=== PATIENT | female | born 1970 | race Caucasian/White ===

== ENCOUNTER 2017-03-28 23:54 | Emergency (ER) | payer BC ==
[2017-03-29] MEDS ORDERED: Nitrostat 0.4 MG (ED) SL ONE ×2 (00:03→00:15)
[2017-03-29] MEDS ORDERED: BABY ASPIRIN 81 MG CHEW PO ONE (00:03)
[2017-03-29] MEDS ORDERED: Sodium Chloride 0.9% 1000 ML 1,000 ML ONE (00:15)
[2017-03-29] MEDS ORDERED: Sodium Chloride 0.9% 1000 ML 1,000 ML IV SCH (00:15)
[2017-03-29] MEDS ORDERED: BABY ASPIRIN 81 MG CHEW ONE (00:15)
[2017-03-29 00:20] LABS: Lactic Acid 2.4 (0.4-2.0)
[2017-03-29 00:21] LABS: Basophil (Absolute #) 0 (0-0.4); Eosinophil % 0.1 % (0.00-5.0); Eosinophil (Absolute #) 0.02 (0-0.5); Granulocyte Absolute (ANC) 12.96 (1.4-6.9); Granulocytes % 83.7 % (36.0-66.0); Hematocrit 37.2 % (35-47); Hemoglobin 12.8 gm/dl (12.0-16.0); Lymphocyte (Absolute #) 1.37 (1.0-4.6); Lymphocytes % 8.8 % (24.0-44.0); Mean Cell Volume 96.4 fl (78-100); Mean Corpuscular Hgb Concent. 34.4 g/dl (32-36); Mean Platelet Volume 10.4 fl (6-9.5); Monocyte (Absolute #) 1.14 (0.0-1.3); Monocytes % 7.4 % (0.0-12.0); Platelet Count 187 K/mm3 (150-450); Red Blood Count 3.86 M/mm3 (4.1-5.4); Red Cell Distribution Width 12.3 % (11.5-14.0); White Blood Count 15.5 K/mm3 (4.0-10.5)
--- NOTE | 2017-03-29 00:33 | ERPHSYRPT ---
- History of Present Illness Time Seen by Provider: 03/29/17 00:01 Historian: patient, family Exam Limitations: no limitations Patient Subjective Stated Complaint: pt states she began having back and shoulder pain yesterday am today pain is in back, chest and shoulder Triage Nursing Assessment: pt alert and oriented, answers questions approp, pt transfer from wheelchair to stretcher with heavy assist of 2. pt with generalized weakness noted. pt short of breath with lungs cta. skin hot and dry. Physician History: pt is 46 year old female with CP today and cough - smoker - no prior hx CAD or lung problems- chest is clear- some response with nitro hx back pain Timing/Duration: today Activities at Onset: none Quality: sharpness, tightness Location: central Chest Pain Radiation: back Severity of Pain-Max: moderate Severity of Pain-Current: moderate Associated Symptoms: cough Prior Chest Pain/Cardiac Workup: no prior chest pain Nitro Today/Relief: 0.4 mg x 1, provided by ED, mild relief Aspirin Treatment Today: 81 mg x 4, provided by ED Allergies/Adverse Reactions: No Known Drug Allergies Allergy (Verified 03/29/17 00:18) Hx Tetanus, Diphtheria Vaccination/Date Given: No Hx Influenza Vaccination/Date Given: No Hx Pneumococcal Vaccination/Date Given: No Immunizations Up to Date: No - Review of Systems Constitutional: No Fever, No Chills Eyes: No Symptoms Ears, Nose, & Throat: No Symptoms Respiratory: Cough, No Dyspnea Cardiac: Chest Pain, No Edema, No Syncope Abdominal/Gastrointestinal: No Abdominal Pain, No Nausea, No Vomiting, No Diarrhea Genitourinary Symptoms: No Dysuria Musculoskeletal: Back Pain, No Neck Pain Skin: No Rash Neurological: No Dizziness, No Focal Weakness, No Sensory Changes Psychological: No Symptoms Endocrine: No Symptoms All Other Systems: Reviewed and Negative - Past Medical History Pertinent Past Medical History: No - Past Surgical History Past Surgical History: No Female Surgical History: Section Other Surgical History: c section x3, rt lumpectomy - Social History Smoking Status: Current every day smoker How long have you smoked: years Exposure to second hand smoke: Yes Drug Use: none Patient Lives Alone: No - Female History Hx Last Menstrual Period: current Hx Now: No - Nursing Vital Signs Nursing Vital Signs: Initial Vital Signs Temperature 100.2 F 03/29/17 00:00 Pulse Rate 114 H 03/29/17 00:00 Respiratory Rate 24 03/29/17 00:00 Blood Pressure 126/71 03/29/17 00:00 O2 Sat by Pulse Oximetry 99 03/29/17 00:00 Pain Scale Pain Intensity 1 - Physical Exam General Appearance: no apparent distress, alert Eye Exam: PERRL/EOMI, eyes nml inspection Ears, Nose, Throat Exam: normal ENT inspection, moist mucous membranes Neck Exam: normal inspection, non-tender, supple, full range of motion Respiratory Exam: normal breath sounds, lungs clear, No respiratory distress Cardiovascular Exam: regular rate/rhythm, normal heart sounds Gastrointestinal/Abdomen Exam: soft, No tenderness, No mass Back Exam: normal inspection, No CVA tenderness, No vertebral tenderness Extremity Exam: normal inspection, normal range of motion Neurologic Exam: alert, oriented x 3, cooperative, normal mood/affect, sensation nml, No motor deficits Skin Exam: normal color, warm, dry SpO2: 95 Oxygen Delivery: Room Air - Course Nursing assessment & vital signs reviewed: Yes EKG Interpreted by Me: Sinus Tach, NORMAL AXIS, Non-specific ST Changes - Radiology Exams Chest X-ray Interpretation: Reviewed by me, Pneumonia (RLL) - CT Exams Chest CT Interpretation: Tele-radiologist Report, Pneumonia (right hilar node) Ordered Tests: Active Orders 24 hr Category Date Time Status Clean Catch Urine Specimen STAT Care 03/29/17 00:01 Active EKG-ER Only STAT Care 03/29/17 00:01 Active IV Insertion STAT Care 03/29/17 00:01 Active NPO (ED) STAT Care 03/29/17 00:01 Active CHEST 1 VIEW (PORTABLE) Stat Exams 03/29/17 00:02 Taken CHEST WITH CONTRAST [CT] Stat Exams 03/29/17 01:36 Taken AMYLASE Stat Lab 03/29/17 00:16 Completed CBC W DIFF Stat Lab 03/29/17 00:16 Completed CMP Stat Lab 03/29/17 00:16 Completed D-DIMER QUANTITATION Stat Lab 03/29/17 00:16 Completed HCG QUALITATIVE,SERUM Stat Lab 03/29/17 00:16 Completed LIPASE Stat Lab 03/29/17 00:16 Completed Lactic Acid Stat Lab 03/29/17 00:10 Completed Lactic Acid Stat Lab 03/29/17 03:15 Completed TROPONIN Q3H Lab 03/29/17 00:16 Completed TROPONIN Q3H Lab 03/29/17 03:14 Received TROPONIN Q3H Lab 03/29/17 06:15 Ordered TROPONIN Q3H Lab 03/29/17 09:15 Ordered TROPONIN Q3H Lab 03/29/17 12:15 Ordered UA W/RFX UR CULTURE Stat Lab 03/29/17 03:16 Received Medication Summary Generic Name Dose Route Start Last Admin Trade Name Freq PRN Reason Stop Dose Admin Sodium Chloride 1,000 mls @ 100 mls/hr 03/29/17 00:15 03/29/17 00:17 Sodium Chloride 0.9% 1000 Ml IV 04/28/17 00:14 100 mls/hr .Q10H DONOVAN Administration Discontinued Medications Generic Name Dose Route Start Last Admin Trade Name Freq PRN Reason Stop Dose Admin Acetaminophen 500 mg 03/29/17 00:50 03/29/17 01:10 Tylenol Extra Strength 500 Mg PO 03/29/17 00:51 500 mg STAT STA Administration Acetaminophen Confirm 03/29/17 01:10 Tylenol Extra Strength 500 Mg Administered 03/29/17 01:11 Dose 500 mg .ROUTE .STK-MED ONE Aspirin 324 mg 03/29/17 00:03 03/29/17 00:17 Baby Aspirin 81 Mg Chew PO 03/29/17 00:04 324 mg STAT ONE Administration Aspirin Confirm 03/29/17 00:15 Baby Aspirin 81 Mg Chew Administered 03/29/17 00:16 Dose 324 mg .ROUTE .STK-MED ONE Diphenhydramine HCl 12.5 mg 03/29/17 00:38 Benadryl 50 Mg/Ml IV 03/29/17 00:39 STAT ONE Diphenhydramine HCl Confirm 03/29/17 00:51 Benadryl 50 Mg/Ml Administered 03/29/17 00:52 Dose 50 mg .ROUTE .STK-MED ONE Diphenhydramine HCl 12.5 mg 03/29/17 01:53 03/29/17 02:08 Benadryl 50 Mg/Ml IV 03/29/17 01:54 12.5 mg STAT ONE Administration Diphenhydramine HCl Confirm 03/29/17 02:07 Benadryl 50 Mg/Ml Administered 03/29/17 02:08 Dose 50 mg .ROUTE .STK-MED ONE Ceftriaxone Sodium/Dextrose 1 g in 50 mls @ 100 mls/hr 03/29/17 00:50 01:02 Rocephin 1 Gm-D5w 50 Ml Bag IV 03/29/17 01:19 100 mls/hr STAT ONE Administration Azithromycin 500 mg in 250 mls @ 250 mls/hr 03/29/17 00:51 03/29/17 01:41 Zithromax 500 Mg/ 250 Ml Nacl Premix IV 03/29/17 01:50 250 mls/hr STAT STA Administration Ceftriaxone Sodium/Dextrose Confirm 03/29/17 00:56 Rocephin 1 Gm-D5w 50 Ml Bag Administered 03/29/17 00:57 Dose 1 g in 50 mls @ ud IV .STK-MED ONE Sodium Chloride 1,000 mls @ 999 mls/hr 03/29/17 01:37 03/29/17 01:41 Sodium Chloride 0.9% 1000 Ml IV 03/29/17 02:37 999 mls/hr .Q1H1M STA Administration Azithromycin Confirm 03/29/17 01:36 Zithromax 500 Mg/ 250 Ml Nacl Premix Administered 03/29/17 01:37 Dose 500 mg in 250 mls @ ud IV .STK-MED ONE Lorazepam 0.5 mg 03/29/17 00:37 03/29/17 01:03 Ativan 0.5 Mg PO 03/29/17 00:38 0.5 mg STAT ONE Administration Lorazepam Confirm 03/29/17 00:52 Ativan 1 Mg Administered 03/29/17 00:53 Dose 1 mg .ROUTE .STK-MED ONE Morphine Sulfate 4 mg 03/29/17 00:38 03/29/17 01:01 Morphine Sulfate 4 Mg Inj IV 03/29/17 00:39 4 mg STAT ONE Administration Morphine Sulfate Confirm 03/29/17 00:52 Morphine Sulfate 4 Mg Inj Administered 03/29/17 00:53 Dose 4 mg .ROUTE .STK-MED ONE Morphine Sulfate 4 mg 03/29/17 01:52 03/29/17 02:52 Morphine Sulfate 4 Mg Inj IV 03/29/17 01:53 4 mg STAT ONE Administration Morphine Sulfate Confirm 03/29/17 02:51 Morphine Sulfate 4 Mg Inj Administered 03/29/17 02:52 Dose 4 mg .ROUTE .STK-MED ONE Nitroglycerin 0.4 mg 03/29/17 00:03 03/29/17 00:17 Nitrostat 0.4 Mg (Ed) SL 03/29/17 00:04 0.4 mg STAT ONE Administration Nitroglycerin Confirm 03/29/17 00:15 Nitrostat 0.4 Mg (Ed) Administered 03/29/17 00:16 Dose 0.4 mg SL .STK-MED ONE Ondansetron HCl 4 mg 03/29/17 00:39 03/29/17 01:01 Zofran 4 Mg/2 Ml Vial IV 03/29/17 00:40 4 mg STAT ONE Administration Ondansetron HCl Confirm 03/29/17 00:51 Zofran 4 Mg/2 Ml Vial Administered 03/29/17 00:52 Dose 4 mg .ROUTE .STK-MED ONE Orphenadrine Citrate 100 mg 03/29/17 00:36 03/29/17 01:17 Norflex 100 Mg Tablet PO 03/29/17 00:37 100 mg STAT ONE Administration Potassium Bicarbonate 25 meq 03/29/17 02:46 03/29/17 02:52 K-Lyte 25 Meq PO 03/29/17 02:47 25 meq STAT ONE Administration Potassium Bicarbonate Confirm 03/29/17 02:51 K-Lyte 25 Meq Administered 03/29/17 02:52 Dose 25 meq .ROUTE .STK-MED ONE Lab/Rad Data: Laboratory Result Diagrams 03/29/17 00:16 03/29/17 00:16 Laboratory Results 03/29/17 03/29/17 03/29/17 Range/Units 03:15 00:22 00:16 WBC (4.0-10.5) K/mm3 RBC (4.1-5.4) M/mm3 Hgb (12.0-16.0) gm/dl Hct (35-47) % MCV (78-100) fl MCH (26-32) pg MCHC (32-36) g/dl RDW (11.5-14.0) % Plt Count (150-450) K/mm3 MPV (6-9.5) fl Gran % (36.0-66.0) % Lymphocytes % (24.0-44.0) % Monocytes % (0.0-12.0) % Eosinophils % (0.00-5.0) % Basophils % (0.0-0.4) % Basophils # (0-0.4) D-Dimer 672.99 H* (0-500) ng/mL Sodium (136-145) mEq/L Potassium (3.5-5.1) mEq/L Chloride (98-107) mEq/L Carbon Dioxide (21-32) mEq/L Anion Gap (5-15) MEQ/L BUN (9-20) mg/dL Creatinine (0.55-1.30) mg/dl Estimated GFR ML/MIN Glucose (70-110) MG/DL Lactic Acid 0.9 (0.4-2.0) Calcium (8.5-10.1) mg/dL Total Bilirubin (0.2-1.0) mg/dL AST (15-37) U/L ALT (12-78) U/L Alkaline Phosphatase (46-116) U/L Troponin I (0.000-0.056) ng/ml Serum Total Protein (6.4-8.2) gm/dL Albumin (3.4-5.0) g/dL Amylase (25-115) U/L Lipase (73-393) U/L Serum , Qual (Negative) Influenza Type A Ag NEGATIVE (NEGATIVE) Influenza Type B Ag NEGATIVE (NEGATIVE) RSV (PCR) NEGATIVE (Negative) 03/29/17 03/29/17 03/29/17 Range/Units 00:16 00:16 00:16 WBC (4.0-10.5) K/mm3 RBC (4.1-5.4) M/mm3 Hgb (12.0-16.0) gm/dl Hct (35-47) % MCV (78-100) fl MCH (26-32) pg MCHC (32-36) g/dl RDW (11.5-14.0) % Plt Count (150-450) K/mm3 MPV (6-9.5) fl Gran % (36.0-66.0) % Lymphocytes % (24.0-44.0) % Monocytes % (0.0-12.0) % Eosinophils % (0.00-5.0) % Basophils % (0.0-0.4) % Basophils # (0-0.4) D-Dimer (0-500) ng/mL Sodium 137 (136-145) mEq/L Potassium 3.2 L (3.5-5.1) mEq/L Chloride 101 (98-107) mEq/L Carbon Dioxide 19.8 L (21-32) mEq/L Anion Gap 19.1 H (5-15) MEQ/L BUN 11 (9-20) mg/dL Creatinine 0.88 (0.55-1.30) mg/dl Estimated GFR > 60 ML/MIN Glucose 112 H (70-110) MG/DL Lactic Acid (0.4-2.0) Calcium 8.7 (8.5-10.1) mg/dL Total Bilirubin 0.40 (0.2-1.0) mg/dL AST 15 (15-37) U/L ALT 10 L (12-78) U/L Alkaline Phosphatase 82 (46-116) U/L Troponin I < 0.017 (0.000-0.056) ng/ml Serum Total Protein 7.9 (6.4-8.2) gm/dL Albumin 3.6 (3.4-5.0) g/dL Amylase 40 (25-115) U/L Lipase 75 (73-393) U/L Serum , Qual NEGATIVE (Negative) Influenza Type A Ag (NEGATIVE) Influenza Type B Ag (NEGATIVE) RSV (PCR) (Negative) 03/29/17 03/29/17 Range/Units 00:16 00:10 WBC 15.5 H (4.0-10.5) K/mm3 RBC 3.86 L (4.1-5.4) M/mm3 Hgb 12.8 (12.0-16.0) gm/dl Hct 37.2 (35-47) % MCV 96.4 (78-100) fl MCH 33.1 H (26-32) pg MCHC 34.4 (32-36) g/dl RDW 12.3 (11.5-14.0) % Plt Count 187 (150-450) K/mm3 MPV 10.4 H (6-9.5) fl Gran % 83.7 H (36.0-66.0) % Lymphocytes % 8.8 L (24.0-44.0) % Monocytes % 7.4 (0.0-12.0) % Eosinophils % 0.1 (0.00-5.0) % Basophils % 0.0 (0.0-0.4) % Basophils # 0 (0-0.4) D-Dimer (0-500) ng/mL Sodium (136-145) mEq/L Potassium (3.5-5.1) mEq/L Chloride (98-107) mEq/L Carbon Dioxide (21-32) mEq/L Anion Gap (5-15) MEQ/L BUN (9-20) mg/dL Creatinine (0.55-1.30) mg/dl Estimated GFR ML/MIN Glucose (70-110) MG/DL Lactic Acid 2.4 H (0.4-2.0) Calcium (8.5-10.1) mg/dL Total Bilirubin (0.2-1.0) mg/dL AST (15-37) U/L ALT (12-78) U/L Alkaline Phosphatase (46-116) U/L Troponin I (0.000-0.056) ng/ml Serum Total Protein (6.4-8.2) gm/dL Albumin (3.4-5.0) g/dL Amylase (25-115) U/L Lipase (73-393) U/L Serum , Qual (Negative) Influenza Type A Ag (NEGATIVE) Influenza Type B Ag (NEGATIVE) RSV (PCR) (Negative) - Progress Progress: improved, re-examined Air Movement: good Progress Note: 03/29/17 02:00 pt has heart score of 3 ( 1 for age of 46 ) ( 1 for + family hx and smoker , but no prior hx cad or elevated cholesterol or hptn) and ( 1 for nonspecific EKG ) not very suspicious for CAD as the pain is only present with deep breath and cough and has infiltrate consistent with pneumonia with fever and elevated WBC consistent with infection as cause; heart score of 3 with 2 neg trops gives low probability for CAD event related to this CP; 03/29/17 03:31 lactate improved after hydration to normal level, and HR down below 100 NSR now. . CP has resolved 03/29/17 03:40 discussed with pt probabilities of additional pathology such as CAD and she feels comfortable with DC for outpt treatment of pneumonia at this time and f/u with a primary- provider 03/29/17 03:43 03/29/17 03:53 pt and family are comfortable in choosing DC with outpt w/u rather than further w/u or admission to hospital after discussion of risks/benefits including cardiac. Blood Culture(s) Obtained: No Antibiotics given: Yes Counseled pt/family regarding: lab results, diagnosis, need for follow-up, rad results, smoking cessation - Departure Time of Disposition: 03:44 Departure Disposition: Home Clinical Impression: Rul/RLL pneumonia , Right hilar adenopathy, chest pain- resolved Condition: Good Critical Care Time: No Referrals: DOCTOR,NO FAMILY [Primary Care Provider] - Instructions: Pneumonia in Adults, Chest Pain (DC), Blood in the Urine ( Hematuria) in Adults Additional Instructions: THe findings on your testing and exam are most consistent with a pneumonia. Although the lung function is good , the pneumonia could get worse , so return if not improving, short of breath , vomiting , weakness or other concerns; there is an enlarged lymph node which is associated with the pneumonia, but requires followup with your dr. to confirm that evnetually this resolves along with the pneumonia by later rechecking another chest x-ray. consider quitting smoking. ALthough the testing did not find evidence for any heart problems , and the pneumonia is the most likely source for your chest pain, heart disease is still possible and you should followup with your dr. and return meantime if any concerns as in the handout. THere is also a trace of blood in your urine which should be followed up but unlikely a cause for any of your symptoms. the potassium was low and should be rechecked with your dr. no driving while taking the cough syrup or muscle relaxer. Prescriptions: Azithromycin 250 mg [Zithromax 250 MG TABLET] 250 mg PO ZPACK #6 tablet Hydrocodone/Cpm/Pseudoephed [Hepoehot-Xno-Xzpnwrfx 5-4-60/5] 5 ml PO Q4-6HPRN PRN #120 solution MDD 6 teaspoons PRN Reason: Cough Orphenadrine Citrate 100 mg [Norflex 100 MG Tablet] 100 mg PO BID #14 tab
[2017-03-29] MEDS ORDERED: Norflex 100 MG Tablet PO ONE (00:36)
[2017-03-29 00:37] LABS: Mean Corpuscular Hemoglobin 33.1 pg (26-32)
[2017-03-29] MEDS ORDERED: Ativan 0.5 MG PO ONE (00:37)
[2017-03-29] MEDS ORDERED: MORPHINE SULFATE 4 MG INJ IV ONE ×2 (00:38→01:52)
[2017-03-29] MEDS ORDERED: BENADRYL 50 MG/ML IV ONE ×2 (00:38→01:53)
[2017-03-29] MEDS ORDERED: Zofran 4 MG/2 ML VIAL IV ONE (00:39)
[2017-03-29 00:46] LABS: ALBUMIN 3.6 g/dL (3.4-5.0); ALKALINE PHOSPHATASE 82 U/L (46-116); AMYLASE 40 U/L (25-115); ANION GAP 19.1 MEQ/L (5-15); BLOOD UREA NITROGEN 11 mg/dL (9-20); CHLORIDE 101 mEq/L (98-107); Calcium 8.7 mg/dL (8.5-10.1); Carbon Dioxide 19.8 mEq/L (21-32); Creatinine 1 0.88 mg/dl (0.55-1.30); EST GLOMERULAR FILTRATION RATE > 60 ML/MIN; Glucose 112 MG/DL (70-110); LIPASE 75 U/L (73-393); Potassium 3.2 mEq/L (3.5-5.1); SGOT/AST 15 U/L (15-37); SGPT/ALT 10 U/L (12-78); SODIUM 137 mEq/L (136-145); Total Protein 7.9 gm/dL (6.4-8.2)
[2017-03-29] MEDS ORDERED: TYLENOL EXTRA STRENGTH 500 MG PO STA (00:50)
[2017-03-29] MEDS ORDERED: ROCEPHIN 1 Gm-D5w 50 ml Bag** 1 G/50 ML IVPB IV ONE ×2 (00:50→00:56)
[2017-03-29] MEDS ORDERED: Zofran 4 MG/2 ML VIAL ONE (00:51)
[2017-03-29] MEDS ORDERED: Zithromax 500 MG/ 250 ML NaCl Premix 500 MG/250 ML IVPB IV STA (00:51)
[2017-03-29] MEDS ORDERED: BENADRYL 50 MG/ML ONE ×2 (00:51→02:07)
[2017-03-29] MEDS ORDERED: MORPHINE SULFATE 4 MG INJ ONE ×2 (00:52→02:51)
[2017-03-29] MEDS ORDERED: Ativan 1 MG ONE (00:52)
[2017-03-29] MEDS ORDERED: TYLENOL EXTRA STRENGTH 500 MG ONE (01:10)
[2017-03-29 01:23] LABS: INFLUENZA A NEGATIVE (NEGATIVE); INFLUENZA B NEGATIVE (NEGATIVE); RESPIRATORY SYNCTIAL VIRUS NEGATIVE (Negative)
[2017-03-29] MEDS ORDERED: Zithromax 500 MG/ 250 ML NaCl Premix 500 MG/250 ML IVPB IV ONE (01:36)
[2017-03-29] MEDS ORDERED: Sodium Chloride 0.9% 1000 ML 1,000 ML IV STA (01:37)
[2017-03-29] MEDS ORDERED: K-LYTE 25 MEQ PO ONE (02:46)
[2017-03-29] MEDS ORDERED: K-LYTE 25 MEQ ONE (02:51)
[2017-03-29 03:30] LABS: Appearance CLEAR (CLEAR); Bacteria FEW /HPF (NEGATIVE); Bilirubin NEGATIVE (NEGATIVE); Blood 50 Ery/ul (0-5); Epithelial Cells FEW /HPF (FEW); Glucose NEGATIVE (NEGATIVE); Ketones SMALL (NEGATIVE); Leukocyte Esterase 1+ (NEGATIVE); Mucus SLIGHT /HPF (NEGATIVE); Nitrite NEGATIVE (NEGATIVE); Protein,Urine Dip NEGATIVE (Negative); Specific Gravity 1.005 (1.005-1.025); Urobilinogen 1 mg/dL (0-1)
[2017-03-29 04:53] VITALS: BP 98/60; PULSE 68; O2SAT 98
--- NOTE | 2017-03-29 09:22 | XRAY ---
Indication: Chest pain, fever, and short of breath. Elevated d-dimer. Multiple contiguous axial images obtained through the chest using 80 cc Isovue 370 contrast and PE protocol. Comparison: None There is satisfactory opacification of the pulmonary arteries. No filling defect or pulmonary embolus. Heart is not enlarged. Aorta is normal in course and caliber. No pathologic mediastinal/hilar lymphadenopathy. Examination of the lung parenchyma demonstrates patchy consolidating airspace opacities in the inferior right upper and right lower lobes. Biapical subpleural cystic changes and minimal bilateral dependent atelectasis. No effusion. Limited upper abdomen unremarkable. Impression: 1. Negative pulmonary embolus. 2. Right upper and right lower lobe consolidating airspace disease. Comment: Preliminary interpretation was made by [facility]. No critical discrepancy. CT DI 10.62
--- NOTE | 2017-03-29 09:53 | XRAY ---
Indication: Chest pain. Fever. Comparison: None Portable chest demonstrates right base airspace disease. Remaining heart, lungs, and bony thorax are unremarkable.
== END 2017-03-29 04:53 | disposition home or self-care (01) ==
LOC: ED 23:54
DX: J18.9 Pneumonia, unspecified organism (principal); R59.9 Enlarged lymph nodes, unspecified; R07.89 Other chest pain; R05 Cough; M54.9 Dorsalgia, unspecified; M25.519 Pain in unspecified shoulder
CPT/HCPCS: 36000; 36415; 71045; 71260; 80053; 81000; 82150; 83605; 83690; 84484; 84703; 85025; 85379; 87086; 87631; 93005; 96360; 96361; 96365; 96367; 96374; 96375; 96376; 99284; J0456; J0696; J1200; J2270; J2405; A9270-GY